=== PATIENT | male | born 1945 | race Caucasian/White ===

== ENCOUNTER → 2020-09-09 | Outpatient (CLI) | payer OTHER ==
--- NOTE | 2020-09-09 14:11 | 2DMMODE ---
[facility] [place] [address] 2 D/M-MODE ECHOCARDIOGRAM Name: MARIELA SWIFT Room #: REG Dre Stacy.Rubens.#: [id number] Admission: 09/09/20 Attend Phys: Bean Garcia MD Discharge: Date of : 49 Report #: [id number] THIS REPORT FOR: cc: Iftikhar Holland MD, Jinming MD Park, Jin S. MD ~ APPROVED REPORT Study performed: 09/09/2020 11:45:17 EXAM: Comprehensive 2D, Doppler, and color-flow Echocardiogram Patient Location: Out-Patient Status: routine BSA: 1.75 HR: 69 bpm BP: 138/86 mmHg Rhythm: Atrial Fibrillation Other Information Study Quality: Good Indications Agent orange. VA assessment for ischemic heart disease. Hx: Afib, HTN. 2D Dimensions RVDd: 33.85 mm IVSd: 14.39 (7-11mm) LVOT Diam: 20.25 (18-24mm) LVDd: 32.25 mm PWd: 14.15 (7-11mm) Ascending Ao: 39.08 (22-36mm) LVDs: 20.47 (25-40mm) Aortic Root: 42.93 mm Volumes Left Atrial Volume (Systole) Single Plane 4CH: 55.81 mL Single Plane 2CH: 69.35 mL LA ESV Index: 39.00 mL/m2 Aortic Valve AoV Peak Aly.: 1.71 m/s AO Peak Gr.: 14.53 mmHg LVOT Max P.20 mmHg AO Mean Gr.: 7.81 mmHg AO V2 Mean: 1.57 m/s LVOT Max V: 0.74 m/s [facility] [address] [place] [address] 2 D/M-MODE ECHOCARDIOGRAM Name: JENIFFER,MARIELA BROWER Room #: REG CL [facility]#: [id number] Admission: 09/09/20 Attend Phys: Bean Garcia MD Discharge: Date of : 49 Report #: [id number] AO V2 VTI: 35.77 cm CASEY Vmax: 1.39 cm2 Pulmonary Valve PV Peak Aly.: 0.72 m/s PV Peak Gr.: 2.05 mmHg Tricuspid Valve TR Peak Aly.: 2.24 m/s RAP Estimate: 5.00 mmHg TR Peak Gr.: 20.15 mmHg PA Pressure: 25.00 mmHg Left Ventricle The left ventricle is normal size. There is normal LV segmental wall motion. Mild concentric left ventricular hypertrophy. The left ventricular systolic function is normal. LVEF is 55-60%. This study is not technically sufficient to allow evaluation of the LV diastolic function due to atrial fibrillation. Right Ventricle The right ventricle is normal size. The right ventricular systolic function is normal. Atria Mild biatrial enlargement. Aortic Valve The aortic valve is normal in structure. Leaflets are moderately calcified. Mild aortic regurgitation. There is mild to moderate valvular aortic stenosis. Calculated aortic valve area is 1.4 cm2 with maximum pressure gradient of 15 mmHg and mean pressure gradient of 8 mmHg. Mitral Valve The mitral valve is normal in structure. Mild mitral annular calcification. Mild mitral regurgitation. No evidence of mitral valve stenosis. Tricuspid Valve The tricuspid valve is normal in structure. Trace to mild tricuspid regurgitation. Estimated PAP is 25mmHg. Pulmonic Valve The pulmonary valve is normal in structure. Mild pulmonic regurgitation. Great Vessels 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 The ascending aorta is mildly dilated; 3.9 cm. IVC is normal in size and collapses >50% with inspiration. Pericardium There is no pericardial effusion. <Conclusion> The left ventricle is normal size. Mild concentric left ventricular hypertrophy. The left ventricular systolic function is normal. The right ventricle is normal size. Mild biatrial enlargement. There is mild to moderate valvular aortic stenosis. Mild aortic regurgitation. Mild mitral regurgitation. <ELECTRONICALLY SIGNED> By: Renny Rodriguez MD 09/09/20 1411 [id number] Renny Rodriguez MD /MARLI
== END ==
LOC: CV 09:22
PROVIDERS: ATTEND Orthopaedic Surgery
DX: I08.8 Other rheumatic multiple valve diseases (principal); I10 Essential (primary) hypertension; I48.91 Unspecified atrial fibrillation